=== PATIENT | female | born 1985 | race African-American/Black ===

== ENCOUNTER 2016-08-13 08:19 | Emergency (ER) | payer OTHER ==
[~2016-08-13] VITALS: Ht 157.5 cm; Wt 55.0 kg
[~2016-08-13 08:19] MED LIST: PRENATAL VITAMINS
[2016-08-13] MEDS ORDERED: PENICILLIN G BENZATHINE 1,200,000 UNITS/2ML SYR IM ONE (10:00)
[2016-08-13] MEDS ORDERED: IBUPROFEN 600MG TABLET PO ONE (10:00)
[2016-08-13 10:19] VITALS: BP 122/69
== END 2016-08-13 10:26 | disposition home or self-care (01) ==
LOC: ER 08:47
DX: J02.0 Streptococcal pharyngitis (principal); Z98.890 Other specified postprocedural states
CPT/HCPCS: 99282; J0561

== ENCOUNTER 2019-04-27 05:42 | Emergency (ER) | payer OTHER ==
[~2019-04-27] VITALS: Ht 152.4 cm; Wt 56.3 kg
[2019-04-27 05:57] VITALS: BP 142/62
[2019-04-27] MEDS ORDERED: PREDNISONE 20MG TABLET PO ONE (07:00)
[2019-04-27] MEDS ORDERED: IPRATROPIUM/ALBUTEROL 0.5-3(2.5)MG/3ML NEB HHN ONE ×2 (07:00→07:45)
[2019-04-27] MEDS ORDERED: DOXYCYCLINE HYCLATE 100MG CAPSULE PO ONE (07:00)
[2019-04-27] MEDS ORDERED: ONDANSETRON 4MG ODT PO ONE (08:00)
== END 2019-04-27 08:36 | disposition home or self-care (01) ==
LOC: ER 06:07
DX: J45.909 Unspecified asthma, uncomplicated (principal); R53.83 Other fatigue; R53.81 Other malaise; R61 Generalized hyperhidrosis; M79.10 Myalgia, unspecified site; R09.89 Other specified symptoms and signs involving the circulatory and respiratory systems; R05 Cough; Z98.890 Other specified postprocedural states
CPT/HCPCS: 99284; J7512; J7610; Q0162